=== PATIENT | female | born 1995 | race Caucasian/White ===

== ENCOUNTER 2017-10-04 10:54 | Emergency (ER) | payer OTHER ==
[~2017-10-04] VITALS: Ht 165.1 cm; Wt 59.0 kg
== END 2017-10-04 15:57 | disposition home or self-care (01) ==
LOC: ER 10:54
DX: B34.9 Viral infection, unspecified (principal)

== ENCOUNTER 2017-12-21 15:56 | Outpatient (CLI) | payer OTHER | END 2017-12-21 16:00 | disposition home or self-care (01) | LOC: LAB 15:56 | DX: I10 Essential (primary) hypertension (principal); D64.89 Other specified anemias ==

== ENCOUNTER 2017-12-24 09:14 | Outpatient (CLI) | payer OTHER | END 2017-12-24 16:18 | disposition home or self-care (01) | LOC: TOM 09:14 | DX: K40.90 Unilateral inguinal hernia, without obstruction or gangrene, not specified as recurrent (principal) ==